=== PATIENT | female | born 1970 | race Caucasian/White ===

== ENCOUNTER 2021-07-25 12:55 | Emergency (ER) | payer MEDICAID, OTHER ==
[2021-07-25] MEDS ORDERED: cefTRIAXone\\ROCEPHIN 500 MG VIAL ONE (14:43)
== END 2021-07-25 15:08 | disposition home or self-care (01) ==
LOC: CSHERS 12:55
DX: Z20.2 Contact with and (suspected) exposure to infections with a predominantly sexual mode of transmission (principal); J45.909 Unspecified asthma, uncomplicated; E11.9 Type 2 diabetes mellitus without complications; G47.30 Sleep apnea, unspecified; F17.210 Nicotine dependence, cigarettes, uncomplicated
CPT/HCPCS: 96372; 99283; J0696